=== PATIENT | female | born 1945 | race Native Hawaiian/Other Pacific Islander ===

== ENCOUNTER 2017-08-07 08:59 | Outpatient (CLI) | payer OTHER | END 2017-08-07 10:00 | disposition home or self-care (01) | LOC: RAD 08:59 | DX: M25.551 Pain in right hip (principal); M25.562 Pain in left knee ==

== ENCOUNTER 2017-11-22 09:47 | Outpatient (CLI) | payer OTHER ==
[2017-11-22 10:40] LABS: PLATELET COUNT 293 K/uL (152-353)
[2017-11-22 10:42] LABS: POTASSIUM 3.9 mmol/L (3.6-5.2)
[2017-11-22 10:53] LABS: PARTIAL THROMBOPLASTIN TIME 27.6 SECONDS (24.5-33.6)
== END 2017-11-22 19:29 | disposition home or self-care (01) ==
LOC: RESP 09:47 → RAD 09:47 → LABW 09:47
PROVIDERS: Orthopaedic Surgery
DX: M16.11 Unilateral primary osteoarthritis, right hip (principal); Z01.811 Encounter for preprocedural respiratory examination
CPT/HCPCS: 36415; 80053; 81000; 85027; 85610; 85730; 87070; 93005

== ENCOUNTER 2018-04-24 11:20 | Outpatient (CLI) | payer OTHER ==
[2018-04-24 12:51] LABS: PLATELET COUNT 282 K/uL (152-353)
== END 2018-04-24 20:43 | disposition home or self-care (01) ==
LOC: LABW 11:20
PROVIDERS: Orthopaedic Surgery
DX: M81.8 Other osteoporosis without current pathological fracture (principal); Z01.818 Encounter for other preprocedural examination
CPT/HCPCS: 36415; 85027; 93005

== ENCOUNTER 2019-07-23 09:48 | Outpatient (CLI) | payer OTHER | END 2019-07-23 19:54 | disposition home or self-care (01) | LOC: US 09:48 | DX: M79.604 Pain in right leg (principal) ==

== ENCOUNTER 2020-09-17 09:03 | Emergency (ER) | payer OTHER ==
[~2020-09-17] VITALS: Ht 167.6 cm; Wt 72.6 kg
[2020-09-17 09:18] VITALS: BP 160/79; TEMP 98.3
[2020-09-17] MEDS ORDERED: SENNA8.6 MG PO (09:34)
[2020-09-17] MEDS ORDERED: DICL75TA4 PO (09:34)
== END 2020-09-17 10:06 | disposition home or self-care (01) ==
LOC: ED 09:03
DX: L50.8 Other urticaria (principal)
CPT/HCPCS: 96372; 99283; J1200; J2930

== ENCOUNTER 2021-01-02 10:30 | Outpatient (CLI) | payer OTHER ==
[~2021-01-02 10:30] MED LIST: DICL75TA4 PO; SENNA8.6 MG PO
== END 2021-01-02 22:50 | disposition home or self-care (01) ==
LOC: RESP 10:30
PROVIDERS: ATTEND Internal Medicine
DX: R00.2 Palpitations (principal); M54.15 Radiculopathy, thoracolumbar region
CPT/HCPCS: 93225

== ENCOUNTER 2021-07-09 14:02 | Emergency (ER) | payer OTHER ==
[~2021-07-09] VITALS: Ht 167.6 cm; Wt 72.6 kg
[2021-07-09 14:36] LABS: PLATELET COUNT 187 K/uL (152-353)
[2021-07-09 14:40] LABS: POTASSIUM 4.4 mmol/L (3.6-5.2); SODIUM 132 mmol/L (136-145)
[2021-07-09 14:50] LABS: PARTIAL THROMBOPLASTIN TIME 26.8 SECONDS (24.5-33.6)
[2021-07-09 15:45] VITALS: BP 142/87; TEMP 97.3
== END 2021-07-09 15:45 | disposition home or self-care (01) ==
LOC: ED 14:02
PROVIDERS: Hospitalist
DX: U07.1 COVID-19 (principal); J06.9 Acute upper respiratory infection, unspecified; R06.02 Shortness of breath
CPT/HCPCS: 80053; 82550; 83880; 84484; 85027; 85610; 85730; 93005; 96374; 99284; J1100